=== PATIENT | male | born 1970 | race Caucasian/White ===

== ENCOUNTER 2017-03-08 11:48 | Emergency (ER) | payer OTHER ==
[2017-03-08] MEDS ORDERED: Famotidine 20 MG/2 ML SDV IVPUSH ONE (11:58)
[2017-03-08] MEDS ORDERED: Ketorolac 30 MG/ML SDV IVPUSH ONE (11:58)
[2017-03-08] MEDS ORDERED: Aspirin 81 MG Tab.Chew PO ONE (11:58)
[2017-03-08] MEDS ORDERED: Nitroglycerin 2% Oint 1 GM UD Packet TOP ONE (11:58)
[2017-03-08] MEDS ORDERED: Sodium Chloride 0.9% 1,000 ML IV ONE (11:58)
[2017-03-08] MEDS ORDERED: Alum Hydrox/Mag Hydrox/Simeth 15 ML, Metoclopramide 5 MG, Lidocaine 2% 5 ML PO ONE ×3 (11:58)
[2017-03-08] MEDS ORDERED: LORazepam 2 MG/ML SDV IVPUSH ONE (11:59)
--- NOTE | 2017-03-08 12:05 | EDM.PDOC ---
ED HPI GENERAL MEDICAL PROBLEM - General Chief Complaint: Cardiovascular Problem Stated Complaint: ANXIOUS,CHEST TIGTNESS Time Seen by Provider: 03/08/17 12:02 Source of Information: Reports: Patient History Limitations: Reports: No Limitations - History of Present Illness INITIAL COMMENTS - FREE TEXT/NARRATIVE: History of present illness: [46-year-old male comes in complaining of chest pain tightness and anxiety. Patient denies any history of cardiac issues or any female cardiac history. Patient also denies smoking. With limited factors and describing this tightness and accompanied with palpitations patient acknowledges is more consistent with a panic attack and he has had a history of these.] Review of systems: As per history of present illness and below otherwise all systems reviewed and negative. Past medical history: As per history of present illness and as reviewed below otherwise noncontributory. Surgical history: As per history of present illness and as reviewed below otherwise noncontributory. Social history: No reported history of drug or alcohol abuse. Family history: As per history of present illness and as reviewed below otherwise noncontributory. Physical exam: HEENT: Atraumatic, normocephalic, pupils reactive, negative for conjunctival pallor or scleral icterus, mucous membranes moist, throat clear, neck supple, nontender, trachea midline. Lungs: Clear to auscultation, breath sounds equal bilaterally, chest nontender. Heart: S1S2, regular, negative for clicks, rubs, or JVD. Abdomen: Soft, nondistended, nontender. Negative for masses or hepatosplenomegaly. Negative for costovertebral tenderness. Pelvis: Stable nontender. Genitourinary: Deferred. Rectal: Deferred. Extremities: Atraumatic, negative for cords or calf pain. Neurovascular unremarkable. Neuro: Awake, alert, oriented. Cranial nerves II through XII unremarkable. Cerebellum unremarkable. Motor and sensory unremarkable throughout. Exam nonfocal. Goal assessment is benign save the subjective complaint as noted in the history of present illness Diagnostics: [CBC, CMP, EKG, troponin, amylase, lipase, chest x-ray] Therapeutics: [GI cocktail, IV fluid, Toradol, Ativan,] Impression: [#1 anxiety] Plan: [Follow-up with primary care provider] Definitive disposition and diagnosis as appropriate pending reevaluation and review of above. Mid-Sternal Chest Pain Score (Numeric/FACES): 4 - Related Data Allergies Allergy/AdvReac Type Severity Reaction Status Date / Time No Known Allergies Allergy Verified 03/08/17 11:57 Home Meds: Home Meds Lisinopril/Hydrochlorothiazide [Lisinopril-Hctz 10-12.5 mg Tab] 1 tab PO DAILY 03/08/17 [History] atorvaSTATin [Lipitor] 20 mg PO DAILY 03/08/17 [History] Past Medical History Cardiovascular History: Reports: High Cholesterol, Hypertension - Infectious Disease History Infectious Disease History: Reports: Chicken Pox Social & Family History - Family History Family Medical History: Noncontributory - Tobacco Use Smoking Status *Q: Never Smoker - Alcohol Use Days Per Week of Alcohol Use: 3 Number of Drinks Per Day: 4 Total Drinks Per Week: 12 - Recreational Drug Use Recreational Drug Use: No ED ROS GENERAL - Review of Systems Review Of Systems: See Below (See history of present illness) ED EXAM, GENERAL - Physical Exam Exam: See Below (See history of present illness) Course - Vital Signs Last Recorded V/S: Last Vital Signs Temp 36.6 C 03/08/17 11:54 Pulse 96 03/08/17 11:54 Resp 20 03/08/17 11:54 BP 184/98 H 03/08/17 11:54 Pulse Ox 92 L 03/08/17 11:54 - Orders/Labs/Meds Orders: Active Orders 24 hr Category Date Time Status Cardiac Monitoring [RC] . DIRECTED Care 03/08/17 11:58 Active EKG Documentation Completion [RC] STAT Care 03/08/17 11:58 Active Labs: Laboratory Tests 03/08/17 03/08/17 Range/Units 11:50 11:50 WBC 8.65 (4.0-11.0) K/uL RBC 5.05 (4.50-5.90) M/uL Hgb 15.3 (13.0-17.0) g/dL Hct 44.5 (38.0-50.0) % MCV 88.1 (80.0-98.0) fL MCH 30.3 (27.0-32.0) pg MCHC 34.4 (31.0-37.0) g/dL RDW Std Deviation 43.1 (28.0-62.0) fl RDW Coeff of John 14 (11.0-15.0) % Plt Count 189 (150-400) K/uL MPV 9.90 (7.40-12.00) fL Neut % (Auto) 54.3 (48.0-80.0) % Lymph % (Auto) 36.1 (16.0-40.0) % [place]ette % (Auto) 7.7 (0.0-15.0) % Eos % (Auto) 1.3 (0.0-7.0) % Baso % (Auto) 0.6 (0.0-1.5) % Neut # (Auto) 4.7 (1.4-5.7) K/uL Lymph # (Auto) 3.1 H (0.6-2.4) K/uL [place]ette # (Auto) 0.7 (0.0-0.8) K/uL Eos # (Auto) 0.1 (0.0-0.7) K/uL Baso # (Auto) 0.1 (0.0-0.1) K/uL Nucleated RBC % 0.0 /100WBC Nucleated RBCs # 0 K/uL Sodium 142 (136-146) mmol/L Potassium 4.0 (3.5-5.1) mmol/L Chloride 108 (98-110) mmol/L Carbon Dioxide 19 L (21-31) mmol/L BUN 13 (6.0-23.0) mg/dL Creatinine 0.9 (0.6-1.5) mg/dL Est Cr Clr Drug Dosing 112.57 mL/min Estimated GFR (MDRD) > 60.0 ml/min Glucose 100 (60-110) mg/dL Calcium 9.2 (8.8-10.8) mg/dL Total Bilirubin 0.4 (0.1-1.5) mg/dL AST 21 (5-40) IU/L ALT 35 (8-54) IU/L Alkaline Phosphatase 87 (40-150) Troponin I < 0.10 (0.0-0.29) NG/ML Total Protein 8.2 H (6.0-8.0) g/dL Albumin 4.5 (3.5-5.0) g/dL Globulin 3.7 H (2.0-3.5) g/dL Albumin/Globulin Ratio 1.2 L (1.3-2.8) Amylase 49 (10-90) U/L Lipase 26 (7-80) U/L Meds: Medications Discontinued Medications Generic Name Dose Route Start Last Admin Trade Name Odalis PRN Reason Stop Dose Admin Aspirin 324 mg 03/08/17 11:58 03/08/17 12:17 Aspirin PO 03/08/17 11:59 324 mg ONETIME ONE Administration Al Hydroxide/Mg Hydroxide 15 0 ml 03/08/17 11:58 03/08/17 12:18 ml/ Metoclopramide HCl 5 mg/ PO 03/08/17 11:59 20 each Lidocaine HCl 5 ml ONETIME ONE Administration Famotidine 20 mg 03/08/17 11:58 03/08/17 12:17 Pepcid IVPUSH 03/08/17 11:59 20 mg ONETIME ONE Administration Sodium Chloride 1,000 mls @ 999 mls/hr 03/08/17 11:58 03/08/17 12:16 Normal Saline IV 03/08/17 12:58 999 mls/hr .Bolus ONE Administration Ketorolac Tromethamine 30 mg 03/08/17 11:58 03/08/17 12:16 Toradol IVPUSH 03/08/17 11:59 30 mg ONETIME ONE Administration Lorazepam 1 mg 03/08/17 11:59 03/08/17 12:16 Ativan IVPUSH 03/08/17 12:00 1 mg ONETIME ONE Administration Nitroglycerin 0.5 gm 03/08/17 11:58 03/08/17 12:17 Nitro-Bid 2% TOP 03/08/17 11:59 0.5 gm ONETIME ONE Administration Departure - Departure Time of Disposition: 13:00 Disposition: Home, Self-Care 01 Condition: Good Clinical Impression: Palpitations, Anxiety Forms: ED Department Discharge Additional Instructions: The following information is given to patients seen in the emergency department who are being discharged to home. This information is to outline your options for follow-up care. We provide all patients seen in our emergency department with a follow-up referral. The need for follow-up, as well as the timing and circumstances, are variable depending upon the specifics of your emergency department visit. If you don't have a primary care physician on staff, we will provide you with a referral. We always advise you to contact your personal physician following an emergency department visit to inform them of the circumstance of the visit and for follow-up with them and/or the need for any referrals to a consulting specialist. The emergency department will also refer you to a specialist when appropriate. This referral assures that you have the opportunity for follow-up care with a specialist. All of these measure are taken in an effort to provide you with optimal care, which includes your follow-up. Under all circumstances we always encourage you to contact your private physician who remains a resource for coordinating your care. When calling for follow-up care, please make the office aware that this follow-up is from your recent emergency room visit. If for any reason you are refused follow-up, please contact the [facility] Emergency Department at and asked to speak to the emergency department charge nurse. Follow up with primary care provider once 2 days Return ED as needed as discussed - My Orders Last 24 Hours: My Active Orders 03/08/17 11:58 Cardiac Monitoring [RC] . DIRECTED EKG Documentation Completion [RC] STAT - Assessment/Plan Last 24 Hours: My Active Orders 03/08/17 11:58 Cardiac Monitoring [RC] . DIRECTED EKG Documentation Completion [RC] STAT
[2017-03-08 12:37] LABS: CHLORIDE,CL 108 mmol/L (98-110); SODIUM,NA 142 mmol/L (136-146)
--- NOTE | 2017-03-08 12:58 | CR ---
EXAMINATION: Portable chest radiograph. HISTORY: Pain. FINDINGS: The trachea is midline. The cardiomediastinal silhouette is within normal limits. No pulmonary infilt rates, effusions or pneumothorax. Osseous structures appear unremarkable. IMPRESSION: No acute cardiopulmonary process.
== END 2017-03-08 13:43 | disposition home or self-care (01) ==
LOC: MW.ED 11:48
DX: F41.9 Anxiety disorder, unspecified (principal); I10 Essential (primary) hypertension; E78.00 Pure hypercholesterolemia, unspecified
CPT/HCPCS: 36415; 71010; 80053; 82150; 83690; 84484; 85025; 93005; 96361; 96374; 96375; 99285; A9270; J1885; J2060; J7040; 99282